=== PATIENT | female | born 1960 | race Caucasian/White ===

== ENCOUNTER 2023-02-21 15:20 | Outpatient (CLI) | payer BC | END 2023-02-21 15:21 | disposition home or self-care (01) | LOC: CSHMAMMO 15:20 | PROVIDERS: ATTEND Family Medicine | DX: Z12.31 Encounter for screening mammogram for malignant neoplasm of breast (principal); Z80.3 Family history of malignant neoplasm of breast | CPT/HCPCS: 77063; 77067 ==

== ENCOUNTER 2023-11-11 13:40 | Outpatient (CLI) | payer BC ==
[~2023-11-11 13:40] MED LIST: Iopamidol 370 76% 100 ML VIAL ONE
== END 2023-11-11 13:41 | disposition home or self-care (01) ==
LOC: CSHCT 13:40
PROVIDERS: ATTEND Surgery
DX: R10.33 Periumbilical pain (principal); K86.9 Disease of pancreas, unspecified; K66.9 Disorder of peritoneum, unspecified
CPT/HCPCS: 74177; 82565; Q9967

== ENCOUNTER 2024-06-08 08:47 | Outpatient (CLI) | payer BC | END 2024-06-08 08:48 | disposition home or self-care (01) | LOC: CSHMAMMO 08:47 | PROVIDERS: ATTEND Family Medicine | DX: Z12.31 Encounter for screening mammogram for malignant neoplasm of breast (principal); N64.89 Other specified disorders of breast; Z80.3 Family history of malignant neoplasm of breast | CPT/HCPCS: 77063; 77067 ==

== ENCOUNTER 2025-01-25 09:06 | Outpatient (CLI) | payer BC | END 2025-01-25 09:07 | disposition home or self-care (01) | LOC: CSHMRI 09:06 | PROVIDERS: ATTEND Orthopaedic Surgery Hand Surgery | DX: S63.632A Sprain of interphalangeal joint of right middle finger, initial encounter (principal); S60.221A Contusion of right hand, initial encounter; M24.241 Disorder of ligament, right hand ==

== ENCOUNTER 2025-04-16 13:55 | Outpatient (CLI) | payer BC ==
[~2025-04-16 13:55] MED LIST changes: +Iopamidol 300 61% 100 ML VIAL FS ONE; -Iopamidol 370 76% 100 ML VIAL ONE
[2025-04-16 15:23] LABS: Estimated GFR - POC 82.0
== END 2025-04-16 13:56 | disposition home or self-care (01) ==
LOC: CSHCT 13:55
DX: R10.20 Pelvic and perineal pain unspecified side (principal)
CPT/HCPCS: 36415; 74177; 82565; Q9967